=== PATIENT | female | born 1960 | race Caucasian/White ===

== ENCOUNTER → 2017-07-23 16:36 | Outpatient (CLI) | payer BC | END | disposition home or self-care (01) | LOC: D.MAMMO 15:30 | DX: Z12.31 Encounter for screening mammogram for malignant neoplasm of breast (principal) ==

== ENCOUNTER → 2017-10-15 17:55 | Outpatient (CLI) | payer BC | END | disposition home or self-care (01) | LOC: D.MAMMO 14:30 → D.US 10-16 08:00 | DX: R92.8 Other abnormal and inconclusive findings on diagnostic imaging of breast (principal) ==

== ENCOUNTER 2017-11-05 10:59 | Inpatient (IN) | payer BC ==
[~2017-11-05] VITALS: Ht 167.6 cm; Wt 57.3 kg
--- NOTE | ~2017-11-05 | HEMODYNAMI ---
PATIENT:ANITRA LYNN MEDICAL RECORD: [id number] : 64 LOCATION:D.MS [id number] ADMISSION DATE: 11/06/17 Generatedon:11/10/201713:44 Patient name: ANITRA LYNN Patient #: [id number] SSN: : 1960 Date of study: 11/10/2017 Page: Of Hemodynamic Procedure Report Patient Data Patient Demographics Procedure consent was obtained First Name: ANITRA Gender: Female Last Name: : 1960 Patient #: [id number] Age: 57 year(s) Race: Unknown Additional ID: [id number] Contact details Address: [address] [place] [address] [facility] State: [place] City: [place] Zip code: [address] Past Medical History Allergies Allergen Reaction Date Comments Reported Demerol 11/10/2017 Admission Admission Data Admission Date: 11/06/2017 Admission Time: 9:51 Room #: [id number].[id number] Procedure Procedure Types Cath Procedure Peripheral Cath Diagnostic Procedure Miscellaneous Chest Tube Placement Procedure Description Procedure Date Procedure Date: 11/10/2017 Procedure Start Time: 13:20 Procedure End Time: 13:42 Procedure Staff Name Function Jude Rocha MD Performing Physician Katya Blancas RT Monitor Sara Healy RN Nurse Bautista Espinal RT Scrub Procedure Data Cath Procedure Fluoroscopy Diagnostic fluoroscopy Total fluoroscopy Time: 1.7 time: 1.7 min min Diagnostic fluoroscopy Total fluoroscopy dose: 5 dose: 5 mGy mGy Procedure Medications Medication Administration Route Dosage Lidocaine 1% added to field 20 Heparin Flush Bag added to field 1 bags (1000units/500ml NS) Versed I.V. 2 mg Fentanyl I.V. 50 mcg Bupivacaine 0.5% Fentanyl I.V. 50 mcg Hemodynamics Rest Heart Rate: 86 (bpm) Snapshots Pre Cath Intra NCS Post Cath Vital Signs Time Heart Resp SPO2 etCO2 NIBP (mmHg) Rhythm Pain Sedation Rate (ipm) (%) (mmHg) Status Level (bpm) 13:09:52 86 18 96 34.7 Measuring NSR 0 (11) 10(A) , No pain 13:10:08 87 15 96 33.2 142/93(132) NSR 0 (11) 10(A) , No pain 13:14:20 83 13 96 34.7 136/86(129) NSR 0 (11) 10(A) , No pain 13:18:32 85 17 95 35.4 149/81(131) NSR 0 (11) 9(A) , No pain 13:22:46 91 14 94 36.2 146/87(122) NSR 0 (11) 9(A) , No pain 13:26:56 83 17 96 29.5 144/82(107) NSR 0 (11) 8(A) , No pain 13:30:53 74 26 92 9.6 111/72(99) NSR 0 (11) 8(A) , No pain 13:34:55 80 15 93 31.7 129/98(103) NSR 0 (11) 8(A) , No pain 13:39:54 78 13 92 32.5 Measuring NSR 0 (11) 8(A) , No pain 13:39:58 78 13 92 32.5 162/100(127) NSR 0 (11) 8(A) , No pain 13:43:58 0 No Cuff NSR 0 (11) 8(A) , No pain Medications Time Medication Route Dose Verified Delivered Reason Notes Effect iveness by by 12:44:27 Lidocaine 1% added 20ml to vial field 12:44:45 Heparin Flush added 1 Bag to bags (1000units/500ml field NS) 13:22:32 Versed I.V. 2 mg Jude Ruiz for Dozing Janiya Healy RN sedation intermittently MD @ 13:27:08 13:22:44 Fentanyl I.V. 50 Jude Ruiz for Dozing mcg Janiya Healy RN sedation intermittently MD @ 13:27:05 13:24:07 Bupivacaine 0.5% 13:26:55 Fentanyl I.V. 50 Jude Ruiz for mcg Janiya Healy RN sedation MD Procedure Log Time Note 12:43:43 Use device set IR Diagnostic 12:43:46 Sterile Angiographic Pack opened to sterile field. 12:43:48 Bag Decanter () opened to sterile field. 12:44:27 Lidocaine 1% 20ml vial added to field was administered by ; ; 12:44:45 Heparin Flush Bag (1000units/500ml NS) 1 bags added to field was administered by ; ; 12:45:29 Cook BILIARY 14FR drainage catheter ([id number]) opened to sterile field. 12:57:03 Bautista Cortezerick RT (R) (CV) sent for patient. Start room use. 12:57:07 Time tracking: Regular hours 12:57:17 Plan of Care:Hemodynamics will remain stable., Cardiac rhythm will remain stable., Comfort level will be maintained., Respiratory function will remain adequate., Patient/ family verbilizes understanding of procedure., Procedure tolerated without complication., Recovers from procedure without complications.. 12:57:36 Patient received from Med/Surg to IR Alert and oriented. Tansferred to table in Supine position. 12:57:42 Correct patient and procedure confirmed by team. 12:57:46 Signed procedure consent form obtained from patient. 12:57:48 ECG and BP/O2 sat monitors applied to patient. 12:57:54 Full Disclosure recording started 12:57:56 - 12:58:12 H&P Date Dictated: 11/10/2017 Within 30 days and on chart.. 12:58:16 Pre-procedure instructions explained to patient. 12:58:17 Pre-op teaching completed and patient verbalized understanding. 12:59:39 Family unavailable. 12:59:51 Patient NPO since Breakfast. 13:01:34 Patient allergic to Demerol 13:02:03 Is the patient allergic to Iodine/contrast media? No. 13:02:34 Is patient on blood thinner?Yes 13:02:45 ACC The patient was administered the following blood thiners within the last 24 hours: ACCLovenox 13:02:54 Patient diabetic? No. 13:03:05 - 13:03:14 Previous problem with sedation/anesthesia? No ? 13:03:38 Snore? Yes 13:03:41 Sleep apnea? No 13:03:44 Deviated septum? No 13:03:48 Opens mouth fully? Yes 13:03:51 Sticks out tongue? Yes 13:03:59 Airway obstruction? No ? 13:04:09 Dentures? Yes ? 13:05:07 Patient pain scale 0/10 ?. 13:05:47 IV patent on arrival in right hand with 0.9% NaCl at [facility]. 13:07:26 PT ARRIVED WITH LEFT CHEST TUBE IN PLACE 13:07:47 Left chest area was prepped with chlora-prep and draped in sterile fashion 13:07:51 Alarms reviewed by R. N. 13:07:53 Sharps counted by scrub and verified by R.N. 13:07:54 - 13:08:03 Vital chart was started 13:08:15 Baseline sample Acquired. 13:13:05 AFSHIN .035 15cm wire ([id number]) opened to sterile field. 13:18:13 Physician arrived 13:18:14 --------ALL STOP TIME OUT------ 13:18:16 Final Timeout: patient, procedure, and site verified with staff and physician. All members of the team are in agreement. 13:18:23 Left chest site verified by team. 13:18:34 Sedation plan: IV Moderate Sedation Medication:Versed, Fentanyl 13:19:37 Procedure started. 13:20:23 Local anesthetic to Chest area with Lidocaine 1% by Jude Rocha MD.INITIAL ACCESS ONLY 13:22:32 Versed 2 mg I.V. was administered by Sara Healy RN; for sedation; 13::44 Fentanyl 50 mcg I.V. was administered by Sara Healy RN; for sedation; 13:24:07 Bupivacaine 0.5% was ADD TO FIELD 13:25:18 SUTURE ETHILON 2-0 BLK MONO FS opened to sterile field. 13:26:05 WIRE IS PLACED, OLD CHEST TUBE REMOVED 13:26:55 Fentanyl 50 mcg I.V. was administered by Sara Healy RN; for sedation; 13:27:05 Effectiveness of Fentanyl delivered @ 13:22:44 is: Dozing intermittentl y 13:27:08 Effectiveness of Versed delivered @ 13:22:32 is: Dozing intermittently 13:27:39 NEW 18 TAMAZIGHT COOK BILIARY CATH USED TO REPLACE CHEST TUBE 13:30:41 DR. ROCHA ADMINISTERED BUPIVACAINE TO SITE ONLY. DR. ROCHA SUTURE D WITH 2.0 ETHILON 13:30:52 Procedure ended.(Physican Out) 13:33:00 Fluoroscopy time 01.70 minutes. 13:33:05 Flurop Dose total: 5 13:33:05 Fluoroscopy dose: 5 mGy 13:33:41 Sharps counted by scrub and verified by R.N. 13:34:11 Insertion/operative site no bleeding no hematoma. 13:34:32 Post-op/insertion site Left Chest area dressed using a 4 x 4 and Tegaderm. 13:34:40 Post procedure instruction explained to patient.Patient verbalizes understanding. 13:34:45 Procedure and supply charges have been captured, reviewed, submitted an d are correct. 13:41:51 See physician's report for complete and final results. 13:41:55 Report given to Med/Surg. 13:42:03 Patient transfered to Med/Surg with Bed. 13:42:11 Procedure ended. 13:42:11 Full Disclosure recording stopped 13:44:31 Vital chart was stopped Device Usage Item Name Manufacture Quantity Catalog Hospital Part Current Minimal Lot# / Number Charge Number Stock Stock Serial# Code Sterile Cardinal 1 [id number] 5 Angiographic Health Pack Bag Decanter Microtek 1 [id number] 5 () [employer] Cook BILIARY Cook Medical 1 [id number] [id number] 5 14FR drainage catheter ([id number]) AFSHIN .035 Cook Medical 1 [id number] [id number] 5 [id number] 15cm wire ([id number]) SUTURE Ethicon 1 [id number] 192730 5 ETHILON 2-0 BLK MONO FS Signature Audit [place] Stage Time Signature Unsigned Intra-Procedure 11/10/2017 Katya 1:44:29 PM Magalis SORIA (Kendrick) (CV) Signatures Monitor : Katya Signature : Magalis RT Date : Time : [facility] [address] [place] [address]
--- NOTE | ~2017-11-05 | OP ---
PATIENT NAME: ANITRA LYNN MEDICAL RECORD: [id number] :64 LOCATION:[facility] [id number].[id number] ADMISSION DATE:11/06/17 SURGEON: MARTIR OLSEN MD DATE OF OPERATION: 11/14/2017 CO-SURGEONS: 1. aMrtir Olsen MD 2. Sonya Rod MD [place]: LANEY Hogan OPERATIONS PERFORMED: 1. Left video-assisted thoracoscopic surgery with apical bleb stapling. 2. Mechanical pleurodesis. 3. Bronchoscopy. PREOPERATIVE DIAGNOSES: Bullous emphysema with spontaneous pneumothorax and intrapleural adhesions. POSTOPERATIVE DIAGNOSES: Bullous emphysema with spontaneous pneumothorax and intrapleural adhesions. ANESTHESIA: Double-lumen general endotracheal anesthesia. ESTIMATED BLOOD LOSS: 20 cc. COMPLICATIONS: None. SPECIMENS: Apical bleb resection for permanent pathology. CONDITION: Stable. DISPOSITION: ICU. OPERATIVE FINDINGS: 1. Dense chronic adhesions to the area of bullous emphysema at the apex and extending medial and posteriorly, taken down with scissors and electrocautery. 2. Bullous emphysema of the apex of the left upper lobe, removed with evelina. 3. Mechanical pleurodesis with scratching and electrocautery. 4. Normal bronchoscopy procedure. INDICATIONS: Left spontaneous pneumothorax without resolution with conservative therapy. PROCEDURE IN DETAIL: The patient was brought to the operating suite. Double-lumen endotracheal tube was placed. The patient was given single lung ventilation, turned into the right lateral decubitus position with appropriate padding. The left chest was sterilely prepped and draped. Incision was made at the tip of the scapula. Pleural cavity was entered. A working port was made posteriorly. The apex was visualized. A small working port was made anteriorly. The lung was grasped and the adhesions were taken down sharply and with electrocautery until the entire lung was freed. Thorough irrigation was undertaken. Hemostasis on the chest wall was assured. The apex was grasped. Stapling device was then introduced and under direct visualization, the apical blebs were removed with stapling device. The pleurodesis was then performed OPERATIVE REPORT [id number] ANITRA LYNN with a scratch pad and then with electrocautery along the inner surface of each rib. Chest tube was placed through the anterior working port directed to the apex. The lung was reinflated. The 2 working ports were closed with muscle layers subcutaneous and subcuticular. A dressing was applied. The patient was taken to CV ICU in stable condition. TRANSINT:[id number] Voice Confirmation ID: [id number] DOCUMENT ID: [id number] MARTIR OLSEN MD at 0933 CC: MALISSA TRIVEDI MD and KAMILLA UNDERWOOD MD [id number] DICTATION DATE: 11/14/17 1436 MANAGER COLLECTION: 11/14/17 1507 ADM IN [place] [id number] [place] [address]
[2017-11-05 11:31] LABS: BASOPHILS 0.2 % (0-2); EOSINOPHILS 0.2 % (0-7); HEMATOCRIT 42.5 % (36.0-48.0); HEMOGLOBIN 14.2 g/dL (12-16); IMMATURE GRANULOCYTES 0.2 % (0-5); LYMPHOCYTES 15.6 % (15-50); MCH 28.2 pg (26.0-34.0); MCHC 33.4 g/dL (31.0-37.0); MCV 84.5 fL (80.0-100.0); MEAN PLATELET VOLUME 10.1 fL (7.4-10.4); NEUTROPHILS 78.8 % (40-80); PLATELET COUNT 240 10x3/uL (130-400); RBC 5.03 10x6/uL (4.00-5.40); RDW 13.2 % (11.5-14.5); WBC 12.5 10x3/uL (4.8-10.8)
[2017-11-05 11:48] LABS: ALBUMIN 3.6 g/dL (3.4-5.0); ALKALINE PHOSPHATASE 65 U/L (46-116); ALT (SGPT) 22 U/L (10-68); CALC OSMOLALITY 276 mosm/kg (275-300); CALCIUM 8.8 mg/dL (8.5-10.1); CARBON DIOXIDE 23.9 mmol/L (21.0-32.0); CHLORIDE - SERUM 102 mmol/L (98-107); CREATININE - SERUM 0.6 mg/dL (0.6-1.3); GLUCOSE 99 mg/dL (74-106); POTASSIUM - SERUM 4.2 mmol/L (3.5-5.1); PROTEIN - SERUM 8.3 g/dL (6.4-8.2); SODIUM 139 mmol/L (136-145); UREA NITROGEN 10 mg/dL (7-18); eGFR NON AFRICAN AMERICAN > 90 mL/min (90-120)
[2017-11-05 11:59] LABS: CKMB 0.9 U/L (0.0-3.6); CREATINE KINASE 85 UL (21-215); TROPONIN-I < 0.017 ng/mL (0.000-0.060)
[2017-11-06] VITALS: BP 157/78
[2017-11-06 04:00] VITALS: BP 163/88
[2017-11-06 05:46] LABS: BASOPHILS 0.3 % (0-2); EOSINOPHILS 1.2 % (0-7); HEMATOCRIT 35.9 % (36.0-48.0); HEMOGLOBIN 11.5 g/dL (12-16); IMMATURE GRANULOCYTES 0.1 % (0-5); MCH 27.6 pg (26.0-34.0); MCV 86.3 fL (80.0-100.0); MEAN PLATELET VOLUME 10.1 fL (7.4-10.4); MONOCYTES 8.7 % (2-11); NEUTROPHILS 55.7 % (40-80); PLATELET COUNT 195 10x3/uL (130-400); RBC 4.16 10x6/uL (4.00-5.40); RDW 13.1 % (11.5-14.5)
[2017-11-06 06:04] LABS: CALC OSMOLALITY 275 mosm/kg (275-300); CALCIUM 8.1 mg/dL (8.5-10.1); CHLORIDE - SERUM 105 mmol/L (98-107); CREATININE - SERUM 0.5 mg/dL (0.6-1.3); GLUCOSE 100 mg/dL (74-106); POTASSIUM - SERUM 3.8 mmol/L (3.5-5.1); SODIUM 140 mmol/L (136-145); eGFR NON AFRICAN AMERICAN > 90 mL/min (90-120)
[2017-11-06 06:05] LABS: UREA NITROGEN 5 mg/dL (7-18)
[2017-11-06 06:19] LABS: WBC 6.7 10x3/uL (4.8-10.8)
[2017-11-06 08:48] VITALS: BP 156/82
[2017-11-06 12:06] VITALS: BMI 20.3
[2017-11-06 12:13] VITALS: BP 144/85
[2017-11-06 16:12] VITALS: BP 129/74
[2017-11-06 20:00] VITALS: BP 129/71
[2017-11-07] VITALS: BP 140/67
[2017-11-07 04:00] VITALS: BP 160/76
[2017-11-07] MEDS ORDERED: BC POWDER (04:10)
[2017-11-07] MEDS ORDERED: MIGRAINE MED (04:10)
[2017-11-07 05:02] LABS: BASOPHILS 0.2 % (0-2); EOSINOPHILS 0.9 % (0-7); HEMATOCRIT 34.7 % (36.0-48.0); HEMOGLOBIN 11.4 g/dL (12-16); IMMATURE GRANULOCYTES 0.1 % (0-5); LYMPHOCYTES 20.9 % (15-50); MCHC 32.9 g/dL (31.0-37.0); MCV 85.3 fL (80.0-100.0); MEAN PLATELET VOLUME 10.3 fL (7.4-10.4); MONOCYTES 7.1 % (2-11); NEUTROPHILS 70.8 % (40-80); PLATELET COUNT 196 10x3/uL (130-400); RBC 4.07 10x6/uL (4.00-5.40); RDW 13.1 % (11.5-14.5)
[2017-11-07 05:07] LABS: WBC 8.8 10x3/uL (4.8-10.8)
[2017-11-07 05:31] LABS: CALC OSMOLALITY 273 mosm/kg (275-300); CALCIUM 8.2 mg/dL (8.5-10.1); CARBON DIOXIDE 27.9 mmol/L (21.0-32.0); CHLORIDE - SERUM 104 mmol/L (98-107); CREATININE - SERUM 0.6 mg/dL (0.6-1.3); GLUCOSE 92 mg/dL (74-106); SODIUM 138 mmol/L (136-145); UREA NITROGEN 6 mg/dL (7-18); eGFR NON AFRICAN AMERICAN > 90 mL/min (90-120)
[2017-11-07 05:44] VITALS: BMI 20.3
[2017-11-07 08:09] VITALS: BP 155/85
[2017-11-07] MEDS ORDERED: TOPAMAX100 MG PO (09:27)
[2017-11-07 12:52] VITALS: BP 152/81
[2017-11-07 15:31] VITALS: Ht 167.6 cm; Wt 57.3 kg
[2017-11-07 16:06] LABS: APPEARANCE HAZY (CLEAR); BILIRUBIN NEGATIVE (NEGATIVE); COLOR YELLOW (YELLOW); GLUCOSE NEGATIVE (NEGATIVE); KETONE NEGATIVE (NEGATIVE); NITRITE NEGATIVE (NEGATIVE); PROTEIN NEGATIVE (NEGATIVE); SPECIFIC GRAVITY 1.015 (1.005-1.020); UROBILINOGEN NORMAL (NORMAL)
[2017-11-07 16:07] LABS: BACTERIA MANY /hpf (NONE SEEN); RED CELLS - URINE 0-5 /hpf (0-5); WHITE CELLS - URINE 0-5 /hpf (0-5)
[2017-11-07 16:55] VITALS: BP 134/83
[2017-11-07 22:00] VITALS: BP 126/54
[2017-11-08 00:32] VITALS: BP 141/81
[2017-11-08 04:00] VITALS: BP 141/84
[2017-11-08 05:19] LABS: BASOPHILS 0.1 % (0-2); EOSINOPHILS 1.9 % (0-7); HEMATOCRIT 36.2 % (36.0-48.0); IMMATURE GRANULOCYTES 0.1 % (0-5); LYMPHOCYTES 22.8 % (15-50); MCHC 33.1 g/dL (31.0-37.0); MCV 84.6 fL (80.0-100.0); MEAN PLATELET VOLUME 10.2 fL (7.4-10.4); MONOCYTES 7.3 % (2-11); NEUTROPHILS 67.8 % (40-80); PLATELET COUNT 193 10x3/uL (130-400); RBC 4.28 10x6/uL (4.00-5.40); RDW 13.1 % (11.5-14.5); WBC 6.8 10x3/uL (4.8-10.8)
[2017-11-08 05:36] LABS: CALC OSMOLALITY 266 mosm/kg (275-300); CALCIUM 8.4 mg/dL (8.5-10.1); CARBON DIOXIDE 27.5 mmol/L (21.0-32.0); CHLORIDE - SERUM 99 mmol/L (98-107); CREATININE - SERUM 0.6 mg/dL (0.6-1.3); GLUCOSE 92 mg/dL (74-106); POTASSIUM - SERUM 4.1 mmol/L (3.5-5.1); SODIUM 134 mmol/L (136-145); eGFR NON AFRICAN AMERICAN > 90 mL/min (90-120)
[2017-11-08 05:37] LABS: UREA NITROGEN 9 mg/dL (7-18)
[2017-11-08 07:06] VITALS: BP 166/97
[2017-11-08 11:02] VITALS: BP 133/87
[2017-11-08 15:13] VITALS: BP 146/81
[2017-11-08 21:40] VITALS: BP 123/75
[2017-11-09 02:38] VITALS: BP 142/63
[2017-11-09 05:23] LABS: CALC OSMOLALITY 277 mosm/kg (275-300); CALCIUM 8.4 mg/dL (8.5-10.1); CARBON DIOXIDE 28.4 mmol/L (21.0-32.0); CHLORIDE - SERUM 103 mmol/L (98-107); CREATININE - SERUM 0.6 mg/dL (0.6-1.3); GLUCOSE 97 mg/dL (74-106); POTASSIUM - SERUM 4.2 mmol/L (3.5-5.1); SODIUM 139 mmol/L (136-145); eGFR NON AFRICAN AMERICAN > 90 mL/min (90-120)
[2017-11-09 05:24] LABS: BASOPHILS 0.1 % (0-2); EOSINOPHILS 2.8 % (0-7); HEMATOCRIT 35.5 % (36.0-48.0); HEMOGLOBIN 11.4 g/dL (12-16); IMMATURE GRANULOCYTES 0.1 % (0-5); LYMPHOCYTES 28.3 % (15-50); MCH 27.4 pg (26.0-34.0); MCHC 32.1 g/dL (31.0-37.0); MCV 85.3 fL (80.0-100.0); MEAN PLATELET VOLUME 10.4 fL (7.4-10.4); MONOCYTES 10.8 % (2-11); NEUTROPHILS 57.9 % (40-80); PLATELET COUNT 210 10x3/uL (130-400); RBC 4.16 10x6/uL (4.00-5.40); RDW 13.3 % (11.5-14.5); WBC 6.7 10x3/uL (4.8-10.8)
[2017-11-09 05:29] VITALS: BP 138/72
[2017-11-09 05:30] LABS: UREA NITROGEN 12 mg/dL (7-18)
[2017-11-09 08:06] VITALS: BP 150/80
[2017-11-09 12:12] VITALS: BP 122/65
[2017-11-09 16:27] VITALS: BP 135/79
[2017-11-09 22:17] VITALS: BP 132/74
[2017-11-10 05:03] VITALS: BP 127/90
[2017-11-10 06:15] LABS: BASOPHILS 0.3 % (0-2); EOSINOPHILS 2.6 % (0-7); HEMATOCRIT 40.8 % (36.0-48.0); IMMATURE GRANULOCYTES 0.1 % (0-5); LYMPHOCYTES 21.3 % (15-50); MCH 27.7 pg (26.0-34.0); MCHC 31.9 g/dL (31.0-37.0); MEAN PLATELET VOLUME 10.6 fL (7.4-10.4); MONOCYTES 8.7 % (2-11); PLATELET COUNT 223 10x3/uL (130-400); RBC 4.69 10x6/uL (4.00-5.40); RDW 13.5 % (11.5-14.5); WBC 7.8 10x3/uL (4.8-10.8)
[2017-11-10 06:25] LABS: CALC OSMOLALITY 273 mosm/kg (275-300); CALCIUM 9.1 mg/dL (8.5-10.1); CARBON DIOXIDE 30.4 mmol/L (21.0-32.0); CHLORIDE - SERUM 100 mmol/L (98-107); CREATININE - SERUM 0.7 mg/dL (0.6-1.3); GLUCOSE 91 mg/dL (74-106); POTASSIUM - SERUM 4.5 mmol/L (3.5-5.1); SODIUM 137 mmol/L (136-145); UREA NITROGEN 12 mg/dL (7-18); eGFR NON AFRICAN AMERICAN > 90 mL/min (90-120)
[2017-11-10 07:02] VITALS: BP 130/86
[2017-11-10 11:09] VITALS: BP 128/74
[2017-11-10 11:58] LABS: APTT 29.1 SECONDS (22.8-39.4); INR 0.93 (0.85-1.17); PROTIME 12.1 SECONDS (11.6-15.0)
[2017-11-10 15:00] VITALS: BP 183/88
[2017-11-10 20:00] VITALS: BP 153/75
[2017-11-11 04:00] VITALS: BP 139/88
[2017-11-11 06:02] LABS: BASOPHILS 0.4 % (0-2); EOSINOPHILS 2.8 % (0-7); HEMATOCRIT 41.6 % (36.0-48.0); HEMOGLOBIN 13.5 g/dL (12-16); IMMATURE GRANULOCYTES 0.3 % (0-5); LYMPHOCYTES 26.9 % (15-50); MCH 27.9 pg (26.0-34.0); MCHC 32.5 g/dL (31.0-37.0); MEAN PLATELET VOLUME 10.2 fL (7.4-10.4); MONOCYTES 10.7 % (2-11); NEUTROPHILS 58.9 % (40-80); PLATELET COUNT 222 10x3/uL (130-400); RBC 4.84 10x6/uL (4.00-5.40); RDW 13.2 % (11.5-14.5); WBC 7.9 10x3/uL (4.8-10.8)
[2017-11-11 06:26] LABS: ALBUMIN 3.3 g/dL (3.4-5.0); ALKALINE PHOSPHATASE 62 U/L (46-116); ALT (SGPT) 96 U/L (10-68); BILIRUBIN - TOTAL 0.25 mg/dL (0.2-1.3); CALC OSMOLALITY 272 mosm/kg (275-300); CALCIUM 9.2 mg/dL (8.5-10.1); CARBON DIOXIDE 32.2 mmol/L (21.0-32.0); CHLORIDE - SERUM 99 mmol/L (98-107); CREATININE - SERUM 0.6 mg/dL (0.6-1.3); GLUCOSE 88 mg/dL (74-106); POTASSIUM - SERUM 3.9 mmol/L (3.5-5.1); PROTEIN - SERUM 7.8 g/dL (6.4-8.2); SODIUM 137 mmol/L (136-145); UREA NITROGEN 13 mg/dL (7-18); eGFR NON AFRICAN AMERICAN > 90 mL/min (90-120)
[2017-11-11 07:00] VITALS: BP 119/61; BP 159/83
[2017-11-11 11:04] VITALS: BP 138/74
[2017-11-11 15:15] VITALS: BP 121/87
[2017-11-11 20:00] VITALS: BP 120/68
[2017-11-12] VITALS: BP 142/73
[2017-11-12 04:00] VITALS: BP 120/67
[2017-11-12 07:11] LABS: BASOPHILS 0.5 % (0-2); EOSINOPHILS 4.1 % (0-7); HEMATOCRIT 42.8 % (36.0-48.0); HEMOGLOBIN 13.8 g/dL (12-16); IMMATURE GRANULOCYTES 0.4 % (0-5); LYMPHOCYTES 24.7 % (15-50); MCH 27.8 pg (26.0-34.0); MCHC 32.2 g/dL (31.0-37.0); MCV 86.3 fL (80.0-100.0); MEAN PLATELET VOLUME 10.6 fL (7.4-10.4); MONOCYTES 12.5 % (2-11); NEUTROPHILS 57.8 % (40-80); PLATELET COUNT 215 10x3/uL (130-400); RBC 4.96 10x6/uL (4.00-5.40); RDW 13.6 % (11.5-14.5)
[2017-11-12 07:12] LABS: WBC 5.6 10x3/uL (4.8-10.8)
[2017-11-12 07:34] LABS: ALBUMIN 3.1 g/dL (3.4-5.0); ALKALINE PHOSPHATASE 70 U/L (46-116); ALT (SGPT) 150 U/L (10-68); BILIRUBIN - TOTAL 0.24 mg/dL (0.2-1.3); CALC OSMOLALITY 277 mosm/kg (275-300); CALCIUM 9.2 mg/dL (8.5-10.1); CARBON DIOXIDE 29.5 mmol/L (21.0-32.0); CHLORIDE - SERUM 101 mmol/L (98-107); CREATININE - SERUM 0.6 mg/dL (0.6-1.3); GLUCOSE 81 mg/dL (74-106); POTASSIUM - SERUM 4.3 mmol/L (3.5-5.1); PROTEIN - SERUM 7.7 g/dL (6.4-8.2); SODIUM 139 mmol/L (136-145); UREA NITROGEN 15 mg/dL (7-18); eGFR NON AFRICAN AMERICAN > 90 mL/min (90-120)
[2017-11-12 08:49] VITALS: BP 142/80
[2017-11-12 12:56] VITALS: BP 146/80
[2017-11-12 16:23] VITALS: BP 109/74
[2017-11-12 20:00] VITALS: BP 130/67
[2017-11-13] VITALS (7 sets, daily range): BP systolic 112–153; BP diastolic 66–89
[2017-11-13 06:31] LABS: BASOPHILS 0.4 % (0-2); EOSINOPHILS 3.8 % (0-7); HEMATOCRIT 39.9 % (36.0-48.0); IMMATURE GRANULOCYTES 0.3 % (0-5); LYMPHOCYTES 21.1 % (15-50); MCHC 32.6 g/dL (31.0-37.0); MEAN PLATELET VOLUME 9.7 fL (7.4-10.4); MONOCYTES 9.7 % (2-11); NEUTROPHILS 64.7 % (40-80); PLATELET COUNT 210 10x3/uL (130-400); RBC 4.64 10x6/uL (4.00-5.40); RDW 13.5 % (11.5-14.5); WBC 7.9 10x3/uL (4.8-10.8)
[2017-11-13 06:52] LABS: ALKALINE PHOSPHATASE 70 U/L (46-116); ALT (SGPT) 162 U/L (10-68); BILIRUBIN - TOTAL 0.36 mg/dL (0.2-1.3); CALC OSMOLALITY 275 mosm/kg (275-300); CALCIUM 8.9 mg/dL (8.5-10.1); CARBON DIOXIDE 30.3 mmol/L (21.0-32.0); CHLORIDE - SERUM 100 mmol/L (98-107); CREATININE - SERUM 0.6 mg/dL (0.6-1.3); GLUCOSE 98 mg/dL (74-106); POTASSIUM - SERUM 4.4 mmol/L (3.5-5.1); PROTEIN - SERUM 7.3 g/dL (6.4-8.2); SODIUM 137 mmol/L (136-145); UREA NITROGEN 18 mg/dL (7-18); eGFR NON AFRICAN AMERICAN > 90 mL/min (90-120)
[2017-11-13 15:57] LABS: HEMATOCRIT 42.3 % (36.0-48.0); HEMOGLOBIN 13.8 g/dL (12-16); MCH 28.2 pg (26.0-34.0); MCHC 32.6 g/dL (31.0-37.0); MCV 86.3 fL (80.0-100.0); MEAN PLATELET VOLUME 9.9 fL (7.4-10.4); RBC 4.9 10x6/uL (4.00-5.40); RDW 13.4 % (11.5-14.5); WBC 8.2 10x3/uL (4.8-10.8)
[2017-11-13 16:09] LABS: APTT 30.3 SECONDS (22.8-39.4); PROTIME 12.8 SECONDS (11.6-15.0)
[2017-11-13 16:18] LABS: ALBUMIN 3.4 g/dL (3.4-5.0); ALKALINE PHOSPHATASE 85 U/L (46-116); ALT (SGPT) 161 U/L (10-68); BILIRUBIN - TOTAL 0.28 mg/dL (0.2-1.3); CALC OSMOLALITY 278 mosm/kg (275-300); CALCIUM 9.1 mg/dL (8.5-10.1); CARBON DIOXIDE 31.4 mmol/L (21.0-32.0); CHLORIDE - SERUM 101 mmol/L (98-107); GLUCOSE 101 mg/dL (74-106); POTASSIUM - SERUM 3.9 mmol/L (3.5-5.1); PROTEIN - SERUM 8.1 g/dL (6.4-8.2); SODIUM 138 mmol/L (136-145); UREA NITROGEN 21 mg/dL (7-18); eGFR NON AFRICAN AMERICAN 79 mL/min (90-120)
[2017-11-13 16:19] LABS: CREATININE - SERUM 0.8 mg/dL (0.6-1.3)
[2017-11-13 20:59] LABS: APPEARANCE CLOUDY (CLEAR); BILIRUBIN NEGATIVE (NEGATIVE); COLOR YELLOW (YELLOW); GLUCOSE NEGATIVE (NEGATIVE); KETONE NEGATIVE (NEGATIVE); NITRITE POSITIVE (NEGATIVE); PROTEIN 2+ mg/dL (NEGATIVE); UROBILINOGEN NORMAL (NORMAL)
[2017-11-13 21:00] LABS: AMORPHOUS SEDIMENT >1+ /lpf (NONE SEEN); BACTERIA MANY /hpf (NONE SEEN); EPITHELIAL CELLS 0-5 /hpf (0-5); GRANULAR CAST NONE SEEN /lpf (NONE SEEN); HYALINE CAST NONE SEEN /lpf (NONE SEEN); MUCUS >1+ /lpf (NONE SEEN); RED CELL CAST NONE SEEN /lpf (NONE SEEN); RED CELLS - URINE 0-5 /hpf (0-5); SPERMATOZOA NONE SEEN /hpf (NONE SEEN); WAXY CAST NONE SEEN /lpf (NONE SEEN); YEAST NONE SEEN /hpf (NONE SEEN)
[2017-11-14] VITALS (22 sets, daily range): BP systolic 133–161; BP diastolic 62–91
[2017-11-14 05:27] LABS: BASOPHILS 0.6 % (0-2); EOSINOPHILS 5.1 % (0-7); HEMATOCRIT 38.1 % (36.0-48.0); HEMOGLOBIN 12.2 g/dL (12-16); IMMATURE GRANULOCYTES 0.2 % (0-5); LYMPHOCYTES 36.5 % (15-50); MCH 27.5 pg (26.0-34.0); MCV 85.8 fL (80.0-100.0); MEAN PLATELET VOLUME 10.3 fL (7.4-10.4); MONOCYTES 11.1 % (2-11); NEUTROPHILS 46.5 % (40-80); PLATELET COUNT 211 10x3/uL (130-400); RBC 4.44 10x6/uL (4.00-5.40); RDW 13.5 % (11.5-14.5); WBC 6.4 10x3/uL (4.8-10.8)
[2017-11-14 05:36] LABS: ALBUMIN 3.1 g/dL (3.4-5.0); ALKALINE PHOSPHATASE 73 U/L (46-116); ALT (SGPT) 152 U/L (10-68); BILIRUBIN - TOTAL 0.39 mg/dL (0.2-1.3); CALC OSMOLALITY 280 mosm/kg (275-300); CALCIUM 8.5 mg/dL (8.5-10.1); CARBON DIOXIDE 28.2 mmol/L (21.0-32.0); CHLORIDE - SERUM 103 mmol/L (98-107); CREATININE - SERUM 0.6 mg/dL (0.6-1.3); GLUCOSE 95 mg/dL (74-106); PROTEIN - SERUM 6.8 g/dL (6.4-8.2); SODIUM 140 mmol/L (136-145); UREA NITROGEN 19 mg/dL (7-18); eGFR NON AFRICAN AMERICAN > 90 mL/min (90-120)
[2017-11-14 05:38] LABS: POTASSIUM - SERUM 4.5 mmol/L (3.5-5.1)
[2017-11-15] VITALS (24 sets, daily range): BP systolic 105–148; BP diastolic 55–79
[2017-11-15 05:24] LABS: BASOPHILS 0.1 % (0-2); EOSINOPHILS 1.9 % (0-7); HEMATOCRIT 34.3 % (36.0-48.0); IMMATURE GRANULOCYTES 0.3 % (0-5); LYMPHOCYTES 13.8 % (15-50); MCH 27.3 pg (26.0-34.0); MCHC 32.1 g/dL (31.0-37.0); MCV 85.1 fL (80.0-100.0); MEAN PLATELET VOLUME 9.6 fL (7.4-10.4); MONOCYTES 7.7 % (2-11); NEUTROPHILS 76.2 % (40-80); PLATELET COUNT 185 10x3/uL (130-400); RBC 4.03 10x6/uL (4.00-5.40); RDW 13.4 % (11.5-14.5)
[2017-11-15 05:25] LABS: WBC 13.5 10x3/uL (4.8-10.8)
[2017-11-15 06:12] LABS: ALBUMIN 2.6 g/dL (3.4-5.0); ALKALINE PHOSPHATASE 56 U/L (46-116); ALT (SGPT) 105 U/L (10-68); CALC OSMOLALITY 277 mosm/kg (275-300); CALCIUM 8.1 mg/dL (8.5-10.1); CARBON DIOXIDE 28.1 mmol/L (21.0-32.0); CHLORIDE - SERUM 103 mmol/L (98-107); CREATININE - SERUM 0.5 mg/dL (0.6-1.3); GLUCOSE 112 mg/dL (74-106); POTASSIUM - SERUM 4.2 mmol/L (3.5-5.1); PROTEIN - SERUM 6.5 g/dL (6.4-8.2); SODIUM 139 mmol/L (136-145); UREA NITROGEN 10 mg/dL (7-18); eGFR NON AFRICAN AMERICAN > 90 mL/min (90-120)
[2017-11-16] VITALS (25 sets, daily range): BP systolic 99–145; BP diastolic 47–83
[2017-11-16 05:04] LABS: HEMOGLOBIN 9.9 g/dL (12-16); MCH 27.3 pg (26.0-34.0); MCHC 31.9 g/dL (31.0-37.0); MCV 85.6 fL (80.0-100.0); MEAN PLATELET VOLUME 9.6 fL (7.4-10.4); RBC 3.62 10x6/uL (4.00-5.40); RDW 13.3 % (11.5-14.5)
[2017-11-16 05:41] LABS: ALBUMIN 2.4 g/dL (3.4-5.0); ALKALINE PHOSPHATASE 54 U/L (46-116); ALT (SGPT) 81 U/L (10-68); CALC OSMOLALITY 278 mosm/kg (275-300); CALCIUM 8.4 mg/dL (8.5-10.1); CARBON DIOXIDE 29.5 mmol/L (21.0-32.0); CHLORIDE - SERUM 105 mmol/L (98-107); CREATININE - SERUM 0.5 mg/dL (0.6-1.3); GLUCOSE 86 mg/dL (74-106); PROTEIN - SERUM 6.1 g/dL (6.4-8.2); SODIUM 141 mmol/L (136-145); UREA NITROGEN 11 mg/dL (7-18); eGFR NON AFRICAN AMERICAN > 90 mL/min (90-120)
[2017-11-17] VITALS (20 sets, daily range): BP systolic 104–137; BP diastolic 7–84
[2017-11-17 05:41] LABS: HEMATOCRIT 28.2 % (36.0-48.0); MCH 27.3 pg (26.0-34.0); MCHC 31.9 g/dL (31.0-37.0); MCV 85.5 fL (80.0-100.0); MEAN PLATELET VOLUME 9.8 fL (7.4-10.4); RBC 3.3 10x6/uL (4.00-5.40); RDW 13.4 % (11.5-14.5); WBC 8.9 10x3/uL (4.8-10.8)
[2017-11-17 05:57] LABS: ALBUMIN 2.2 g/dL (3.4-5.0); ALKALINE PHOSPHATASE 84 U/L (46-116); CALC OSMOLALITY 282 mosm/kg (275-300); CALCIUM 8.2 mg/dL (8.5-10.1); CARBON DIOXIDE 30.3 mmol/L (21.0-32.0); CHLORIDE - SERUM 106 mmol/L (98-107); CREATININE - SERUM 0.4 mg/dL (0.6-1.3); GLUCOSE 86 mg/dL (74-106); POTASSIUM - SERUM 3.9 mmol/L (3.5-5.1); SODIUM 142 mmol/L (136-145); UREA NITROGEN 14 mg/dL (7-18); eGFR NON AFRICAN AMERICAN > 90 mL/min (90-120)
[2017-11-17 05:58] LABS: ALT (SGPT) 135 U/L (10-68)
[2017-11-18 03:00] VITALS: BP 119/76
[2017-11-18 07:00] VITALS: BP 108/58; BP 119/78
[2017-11-18] MEDS ORDERED: NORCO 7.5/325 T1 TA1 PO (08:09)
[2017-11-18] MEDS ORDERED: NICODERM C1 PATCH .3 TRANSDERM (10:36)
[2017-11-18] MEDS ORDERED: MUCINEX DM ER1 EAC1 PO (10:37)
[2017-11-18] MEDS ORDERED: BENZONATATE200 MG PO (10:37)
[2017-11-18] MEDS ORDERED: REMOVE PATCH TD (10:38)
[2017-11-18] MEDS ORDERED: LIDODERM 5 %1 PATCH TRANSDERM (10:38)
[2017-11-18 11:00] VITALS: BP 132/70
[2017-11-18 12:12] VITALS: BP 133/71
== END 2017-11-18 12:12 | disposition home or self-care (01) | DRG 163 ==
LOC: D.ER 10:59 → OBSVTIME 13:00 → D.MS 13:00 → D.EDHOLD 13:00 → D.MS 20:15 → D.CVICU 11-06 09:51 → D.MS 11-06 09:51 → D.CVICU 11-14 09:46
PROVIDERS: Emergency Medicine; Family Medicine Adult Medicine; Internal Medicine Nephrology; Radiology Diagnostic Radiology; Thoracic Surgery (Cardiothoracic Vascular Surgery)
PROC: 0W9B30Z Drainage of Left Pleural Cavity with Drainage Device, Percutaneous Approach (ICD-10-PCS; principal; 2017-11-05 12:15)
PROC: 0W9B30Z Drainage of Left Pleural Cavity with Drainage Device, Percutaneous Approach (ICD-10-PCS; 2017-11-10)
PROC: 0B5P4ZZ Destruction of Left Pleura, Percutaneous Endoscopic Approach (ICD-10-PCS; 2017-11-14)
PROC: 0BBL4ZX Excision of Left Lung, Percutaneous Endoscopic Approach, Diagnostic (ICD-10-PCS; 2017-11-14)
PROC: 0BNL4ZZ Release Left Lung, Percutaneous Endoscopic Approach (ICD-10-PCS; 2017-11-14)
PROC: 0BQL4ZZ Repair Left Lung, Percutaneous Endoscopic Approach (ICD-10-PCS; 2017-11-14 07:30)
DX: J93.83 Other pneumothorax (principal); J96.92 Respiratory failure, unspecified with hypercapnia; F17.203 Nicotine dependence unspecified, with withdrawal; J98.11 Atelectasis; J94.8 Other specified pleural conditions; D72.829 Elevated white blood cell count, unspecified; J43.9 Emphysema, unspecified; D64.9 Anemia, unspecified; R74.8 Abnormal levels of other serum enzymes; E88.09 Other disorders of plasma-protein metabolism, not elsewhere classified

== ENCOUNTER → 2017-12-03 09:45 | Outpatient (CLI) | payer BC ==
[2017-11-07 15:31] VITALS: BMI 20.3
[~2017-12-03 09:45] MED LIST: BC POWDER; BENZONATATE200 MG PO; LIDODERM 5 %1 PATCH TRANSDERM; MIGRAINE MED; MUCINEX DM ER1 EAC1 PO; NICODERM C1 PATCH .3 TRANSDERM; NORCO 7.5/325 T1 TA1 PO; REMOVE PATCH TD; TOPAMAX100 MG PO
== END | disposition home or self-care (01) ==
LOC: D.RAD 09:45
DX: J90 Pleural effusion, not elsewhere classified (principal)

== ENCOUNTER → 2017-12-11 08:12 | Outpatient (CLI) | payer BC ==
[2017-11-07 15:31] VITALS: BMI 20.3
== END | disposition home or self-care (01) ==
LOC: D.US 08:12
DX: R79.89 Other specified abnormal findings of blood chemistry (principal)